=== PATIENT | female | born 2005 | race Caucasian/White ===

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

== ENCOUNTER 2025-06-23 05:25 | Emergency (ER) | payer MEDICAID, SELFPAY ==
[2025-06-23 05:28] VITALS: BP 148/74; PULSE 109; RESP 16; O2SAT 98
--- NOTE | 2025-06-23 05:38 | ED.GENADUL_ITS ---
Discharge Plan Disposition Patient Disposition: Home Condition: Stable Discharge Details Clinical Impression: Vaginal spotting, Second trimester , UTI (urinary tract infection) Primary Care Provider: Unknown,Unknown ED Provider: Judah Johnson Home Meds and New Rx's Prescriptions: New cephalexin 500 mg capsule 500 mg PO TID Qty: 15 0RF Continued methylphenidate HCl [Concerta] 18 mg tablet extended release 24hr 18 mg PO DAILY sertraline 100 mg tablet 100 mg PO DAILY Complete DHA 29 mg iron- 1 mg-200 mg combo pack 1 pkg PO DAILY Patient Comments: TAKE 1 CAPSULE BY MOUTH EVERY DAY aspirin 81 mg tablet,chewable 2 tab PO DAILY Patient Comments: CHEW AND SWALLOW 2 TABLETS BY MOUTH DAILY Discharge Instructions Additional Instructions: You were seen in the ED for vaginal spotting in your second trimester. Your bedside ultrasound showed good movement and heartbeat. There was no evidence of heavy bleeding here. Your urine does suggest infection and does have blood in it so it is possible the bleeding was urinary and not vaginal. We will start you on antibiotic for the UTI. You will need to follow-up with OB this week. If you are unable to get to your doctors at [facility] you may follow-up with our OB doctors here, will need to call on Tuesday for appointment. You should return to the ED for any fever, back pain, pelvic pain or cramping, heavy bleeding, other concerns Referrals: [facility] [Provider Group] [facility] General Mode of arrival: ambulatory . Date/Time Provider Initiated Documentation: 06/23/25 05:25 . Limitations to Documentation: no limitations . Information obtained by: patient, RN notes reviewed and old records reviewed . HPI Narrative: Patient presents to ED with vaginal bleeding. Patient is 16 weeks . This is her first . She is being followed at [facility] as she had been initially in the [facility]. She is currently at one of the [facility] on a voucher as she is otherwise homeless. She was just seen last week by her OB physician. She has been having no issues until this morning woke up with initially just some spotting then felt she was having some bleeding and came into the ED. Denies any recent intercourse. Denies any urinary symptoms. Denies any pelvic pain or cramping. She has been well and not having any issues with vomiting lately. Related Data Home Medications ?Medication ?Instructions ?Recorded ?Confirmed methylphenidate HCl 18 mg 18 mg PO DAILY 09/17/2405/28 tablet,extended release 24 hr (Concerta) sertraline 100 mg tablet 100 mg PO DAILY 09/17/24 PNV-iron 29 mg-folic acid 1 1 pkg PO DAILY 06/23/25 [id number] 200 mg oral combo pack (Complete Leonila DHA) aspirin 81 mg chewable tablet 2 tab PO DAILY 06/23/25 06/23/25 cephalexin 500 mg capsule 500 mg PO TID #15 caps 06/23 Previous Rx's ?Medication ?Instructions ?Recorded cephalexin 500 mg capsule 500 mg PO TID #15 caps 06/23 Allergies Allergy/AdvReac Type Severity Reaction Status Date / Time No Known Allergies Allergy Unverified 06/23/25 05:33 General Stated Complaint: ER MEDICAL TECHNICIAN JAYME: 3 Exam Narrative Exam Narrative: Const: Obese female in NAD. VS per triage. HEENT: NC/AT. Normal facial exam. Neck: Supple. Trachea midline. Lungs: Normal respiratory effort. GI: Soft/ND/NT. Pelvic: Speculum exam performed with ED nurse present. Patient not tolerating exam and unable to visualize cervix. There was no bleeding noted, only scant pinkish discharge. Neuro: A+O x 3. Normal speech, mentation, gait. Cranial nerves II - XII grossly intact. No gross motor or sensory deficit. Course Vital Signs Vital signs: Vital Signs Pulse 109 H 06/23/25 05:28 Respiratory Rate 16 06/23/25 05:28 Blood Pressure 148/74 H 06/23/25 05:28 Pulse Oximetry 98 06/23/25 05:28 Pulse 109 H 06/23/25 05:28 Respiratory Rate 16 06/23/25 05:28 Blood Pressure 148/74 H 06/23/25 05:28 Pulse Oximetry 98 06/23/25 05:28 Oxygen Delivery Method Room Air 06/23/25 05:28 Oxygen Flow Rate 0 06/23/25 05:28 Pain Level 0 06/23/25 05:33 Medical Decision Making Patient presenting to ED at 16 weeks with concern for vaginal bleeding. She otherwise feels well and is not having any pelvic pain or cramping. She denies urinary symptoms. POCUS performed by me and images saved. There is good movement and heart rate. Her records from the [facility] system are available in the [facility] portal and she is documented O+. Speculum exam does not show significant bleeding. Case discussed with OB, Dr. Hernandez. At this time there is nothing further to do. I do have a urine pending to make sure this is not UTI related. Patient may follow-up with her primary OB or if it is too difficult to get over there from here, she may follow-up with her OB early this week. Urine is positive for large blood and leukocyte esterase. Micro with 10-20 red cells, 10-20 white cells, few epithelials and few bacteria. A culture is pending but I will start the patient on cephalexin for presumed UTI. Patient understands the need for follow-up. We discussed return precautions. Lab Data Lab results reviewed: Yes I reviewed the patient's lab results. Lab results narrative: see MDM Quality:SDOH Health Related Social Needs: Health related social needs details homeless currently on a voucher for [employer] here in [facility] Health related social needs details: homeless currently on a voucher for [employer] here in [facility] All Active Problems (Updated 06/23/25 @ 06:53 by Judah Johnson MD) UTI (urinary tract infection) (Acute) Second trimester (Acute) Vaginal spotting (Acute) Medical History (Updated 06/23/25 @ 06:53 by Judah Johnson MD) ADHD Depression Social History Smoking/Tobacco Use Status: Never Smoking risk assessment performed?: Yes Alcohol Intake: never Drug use: Never Substance use type: does not use Housing: apartment Do you feel safe at home: Yes Do you feel safe in your relationship?: Yes POCUS Exam (ED) Limited OB Exam DATE OF EXAM:: 06/23/25 TIME OF EXAM:: 06:00 PROVIDER THAT PERFORMED THE STUDY: Judah Johnson Type of Exam: Pelvic OB Trans Abdominal REASON FOR EXAM: Vaginal Bleeding VISUALIZED STRUCTURES: Other structure: fetus with movement/cardiac activity PERTINENT FINDINGS/IMPRESSION: cardiac activity Exam Complete.
[2025-06-23 06:45] LABS: Glucose Negative (Negative)
[2025-06-23 06:46] LABS: C & S Indicated? Yes
[2025-06-23] MEDS: Cephalexin 500 MG CAP PO (07:03)
--- NOTE | 2025-06-25 16:58 | NUR.NOTE ---
Accessed Pt chart to document antibiotics given to document on Specimen report. Report was given to providers
== END 2025-06-23 07:04 | disposition home or self-care (01) ==
PROVIDERS: Emergency Provider Emergency Medicine
DX: N93.9 Abnormal uterine and vaginal bleeding, unspecified (principal); N39.0 Urinary tract infection, site not specified; Z3A.16 16 weeks gestation of pregnancy; Z59.01 Sheltered homelessness
CPT/HCPCS: 99283 ×2; 76815; 81003; 81015; 87086